=== PATIENT | female | born 1950 | race Two or more races ===

== ENCOUNTER 2024-06-13 10:04 | Emergency (ER) | payer OTHER ==
[~2024-06-13] VITALS: Ht 157.5 cm; Wt 58.1 kg
[~2024-06-13 10:04] MED LIST: ALBUTEROL17 G1 IH; ATACAND32 MG PO; EVISTA60 MG PO
[2024-06-13] MEDS ORDERED: COZAAR100 MG PO (10:31)
[2024-06-13] MEDS ORDERED: LIPITOR40 M1 PO (10:32)
[2024-06-13] MEDS ORDERED: SINGULAIR4 MG PO (10:32)
[2024-06-13] MEDS ORDERED: 0.9 % SODIUM CHLORIDE 1,000 ML IV ONE (11:15)
[2024-06-13] MEDS ORDERED: ACYCLOVIR 800 MG TABLET PO ONE (11:15)
[2024-06-13] MEDS ORDERED: KETOROLAC TROMETHAMINE 60 MG VIAL IM ONE (11:15)
[2024-06-13] MEDS ORDERED: FAMOtidine 10 MG/ML (4ML VIAL) IV ONE (11:15)
[2024-06-13] MEDS ORDERED: KETOROLAC TROMETHAMINE 30 MG VIAL ONE (11:37)
[2024-06-13] MEDS ORDERED: FAMOTIDINE/PF 20 MG/2 ML VIAL ONE (11:37)
[2024-06-13 12:31] LABS: HEMOGLOBIN 13.8 g/dL (12.0-15.00); MEAN CELL VOLUME 95.8 fL (80.00-100.00); MEAN CORPUSCULAR HEMOGLOBIN 32.9 pg (27.00-32.0); MEAN CORPUSCULAR HGB CONC 34.4 g/dl (32.0-36.0); PLATELET COUNT 197 K/uL (150-450); RED BLOOD COUNT 4.18 M/uL (4.00-6.00); RED CELL DISTRIBUTION WIDTH 13.2 % (11.5-14.5)
[2024-06-13 12:42] LABS: ALBUMIN 3.5 gm/dL (3.4-5.0); BILIRUBIN TOTAL 0.74 mg/dL (0.3-1.2); CALCIUM 9.7 mg/dL (8.5-10.1); CREATININE SERUM 0.67 mg/dL (0.55-1.02); GFR 85.8; GLOBULINA 4.4 G/DL (2.4-3.5); POTASSIUM 4.55 mEq/L (3.5-5.1); TOTAL PROTEIN 7.9 gm/dL (6.4-8.2)
[2024-06-13 12:47] LABS: URINE APPEARANCE Clear; URINE BILIRRUBIN Negative (NEGATIVE); URINE BLOOD Small; URINE COLOR Yellow; URINE GLUCOSE Negative (NEGATIVE); URINE KETONE 15 (NEGATIVE); URINE LEUKOCYTE Negative; URINE NITRATE Negative; URINE PROTEIN Negative (NEGATIVE); URINE UROBILINOGEN 0.2 E.U./dl
[2024-06-13 12:51] LABS: URINE EPITHELIAL CELLS 3.8 uL (0.0-38.8); URINE RBC 15.5 uL (0.0-20.8); URINE WBC 3.9 uL (0.0-23.2)
[2024-06-13 12:55] LABS: URINE BACTERIA 2.5 uL (0.0-1933)
[2024-06-13] MEDS ORDERED: ZOVIRAX800 MG PO (13:02)
[2024-06-13] MEDS ORDERED: PEPCID AC20 MG PO (13:02)
[2024-06-13] MEDS ORDERED: HORIZANT300 MG PO (13:02)
== END 2024-06-13 13:13 | disposition home or self-care (01) ==
LOC: ER 10:05
PROVIDERS: General Practice
DX: B02.9 Zoster without complications (principal); R10.9 Unspecified abdominal pain; I10 Essential (primary) hypertension
CPT/HCPCS: 36415; 96365; 96372; 99282; J1885; J3490; J7030

== ENCOUNTER 2025-09-09 08:12 | Emergency (ER) | payer OTHER ==
[~2025-09-09] VITALS: Ht 157.5 cm; Wt 59.0 kg
[~2025-09-09 08:12] MED LIST changes: +COZAAR100 MG PO; +HORIZANT300 MG PO; +LIPITOR40 M1 PO; +PEPCID AC20 MG PO; +SINGULAIR4 MG PO; +ZOVIRAX800 MG PO
[2025-09-09] MEDS ORDERED: METHYLPREDNISOLONE SOD SUCC 125 MG VIAL IV ONE (09:00)
[2025-09-09] MEDS ORDERED: CEFTRIAXONE SODIUM 1,000 MG VIAL IV ONE (09:00)
[2025-09-09] MEDS ORDERED: MAGNESIUM SULFATE IN WATER 0.04 GM/ML IV.SOLN IV ONE (09:00)
[2025-09-09] MEDS ORDERED: LEVALBUTEROL HCL 1.25 MG/3 ML SOLUTION IH SCH (09:00)
[2025-09-09] MEDS ORDERED: IPRATROPIUM BROMIDE 0.5 MG/2.5 ML AMPUL.NEB IH SCH (09:00)
[2025-09-09] MEDS ORDERED: METHYLPREDNISOLONE SOD SUCC 125 MG VIAL ONE (09:02)
[2025-09-09] MEDS ORDERED: CEFTRIAXONE SODIUM 1,000 MG VIAL ONE (09:02)
[2025-09-09] MEDS ORDERED: WATER FOR INJ.,BACTERIOSTATIC 30 ML VIAL IJ ONE (09:04)
[2025-09-09] MEDS ORDERED: LEVALBUTEROL HCL 1.25 MG/3 ML SOLUTION IH ONE (09:54)
[2025-09-09] MEDS ORDERED: IPRATROPIUM BROMIDE 0.5 MG/2.5 ML AMPUL.NEB IH ONE (09:55)
[2025-09-09 10:17] LABS: BASO % 0.3 % (0.1-1.2); EOS # 0.07 (0.04-0.54); EOS % 0.9 % (0.7-7.0); LYMPH # 0.58 (1.18-3.74); LYMPH % 7.4 % (19.3-53.1); MEAN PLATELET VOLUME 10.60 fl (9.4-12.4); MONO # 0.45 (0.24-0.82); MONO % 5.7 % (4.7-12.5); NEUT # 6.70 (1.56-6.13); NEUT % 85.4 % (34.0-71.1); RED CELL DISTRIBUTION WIDTH 13.5 % (11.6-14.4)
[2025-09-09 10:51] LABS: ALT/SGPT 17.0 U/L (12-78); AST/SGOT 19.0 U/L (15-37); BILIRUBIN TOTAL 1.08 mg/dL (0.3-1.2); BUN CREA RATIO 21.0 (7.0-25.0); CREATININE SERUM 0.67 mg/dL (0.55-1.02); GFR 85.57; GLOBULINA 5.0 G/DL (2.4-3.5); GLUCOSE FASTING 129.0 mg/dL (65-100); OSMOLALITY SERUM 287.0 MOSM/KG (275-295)
[2025-09-09 11:05] LABS: COVID-19 AG NEGATIVE (NEGATIVE)
[2025-09-09] MEDS ORDERED: SINGULAIR10 MG PO (11:44)
[2025-09-09] MEDS ORDERED: ADULT TUSS100 MG/51 PO (11:44)
[2025-09-09] MEDS ORDERED: BENZONATATE200 M1 PO (11:44)
[2025-09-09] MEDS ORDERED: LEVALBUTER0.63 MG/3 IH (11:44)
== END 2025-09-09 12:42 | disposition home or self-care (01) ==
LOC: ER 08:12
PROVIDERS: General Practice
DX: J45.909 Unspecified asthma, uncomplicated (principal); R53.83 Other fatigue; R06.02 Shortness of breath; I10 Essential (primary) hypertension; Z20.822 Contact with and (suspected) exposure to COVID-19
CPT/HCPCS: 36415; 71045; 82803; 94640; 96365; 99283; J0696; J3475; J3490

== ENCOUNTER 2025-09-10 08:54 | Inpatient (IN) | payer OTHER ==
[~2025-09-10] VITALS: Ht 160 cm; Wt 59.0 kg
[~2025-09-10 08:54] MED LIST changes: +ADULT TUSS100 MG/51 PO; +BENZONATATE200 M1 PO; +LEVALBUTER0.63 MG/3 IH; +SINGULAIR10 MG PO
--- NOTE | 2025-09-10 09:04 | NUR ---
PACIENTE ALERTA Y ORIENTADA X 3. REFIERE DESDE ROBBIN TENER HBP, CANSANCIO, ASMA Y SE OBSERVA CON ANSIEDAD AL MOMENTO DE REALIZAR TRIAGE.
[2025-09-10] MEDS ORDERED: CEFTRIAXONE SODIUM 2,000 MG VIAL IV ONE (10:00)
[2025-09-10] MEDS ORDERED: METHYLPREDNISOLONE SOD SUCC 125 MG VIAL IV ONE (10:00)
[2025-09-10] MEDS ORDERED: IPRATROPIUM BROMIDE 0.5 MG/2.5 ML AMPUL.NEB IH ONE (10:00)
[2025-09-10] MEDS ORDERED: LEVALBUTEROL HCL 0.63 MG/3 ML SOLUTION IH SCH (10:00)
[2025-09-10] MEDS ORDERED: IPRATROPIUM BROMIDE 0.5 MG/2.5 ML AMPUL.NEB IH SCH (10:00)
[2025-09-10] MEDS ORDERED: ENALAPRILAT DIHYDRATE 1.25 MG/ML VIAL IV ONE ×2 (10:00→10:03)
[2025-09-10] MEDS ORDERED: LEVALBUTEROL HCL 0.63 MG/3 ML SOLUTION IH ONE (10:01)
[2025-09-10] MEDS ORDERED: METHYLPREDNISOLONE SOD SUCC 125 MG VIAL ONE (10:03)
[2025-09-10] MEDS ORDERED: CEFTRIAXONE SODIUM 2,000 MG VIAL ONE (10:03)
--- NOTE | 2025-09-10 10:34 | NUR ---
SE ORIENTA A PACIENTE SOBRE TRATAMIENTO MEDICO, REFIERE ENTENDER. SE COLECTAN MUESTRAS DE LABORATORIO Y SE CANALIZA A PACIENTE BAJO MEDIDAS ASEPTICAS. SE ADMINISTRAN MEDICAMENTOS MARTI ORDEN MEDICA. PERSONAL DE TERAPIA RESPIRATORIA REALIZA ABGS Y ADMINISTRA TERAPIAS ORDENADAS.
[2025-09-10 11:17] LABS: BASO % 0.1 % (0.1-1.2); EOS # 0.00 (0.04-0.54); EOS % 0.0 % (0.7-7.0); LYMPH # 0.79 (1.18-3.74); LYMPH % 6.9 % (19.3-53.1); MEAN PLATELET VOLUME 10.70 fl (9.4-12.4); MONO # 0.93 (0.24-0.82); MONO % 8.1 % (4.7-12.5); NEUT # 9.65 (1.56-6.13); NEUT % 84.4 % (34.0-71.1); RED CELL DISTRIBUTION WIDTH 13.4 % (11.6-14.4)
[2025-09-10 11:20] LABS: ERYTHROCYTE SEDIMENTATION RATE 79 mm/hr (0-30)
[2025-09-10 11:51] LABS: ALT/SGPT 20.0 U/L (12-78); AST/SGOT 22.0 U/L (15-37); BILIRUBIN TOTAL 1.03 mg/dL (0.3-1.2); BUN CREA RATIO 20.0 (7.0-25.0); CREATININE SERUM 0.83 mg/dL (0.55-1.02); GFR 66.84; GLOBULINA 5.6 G/DL (2.4-3.5); GLUCOSE FASTING 106.0 mg/dL (65-100); OSMOLALITY SERUM 287.0 MOSM/KG (275-295)
[2025-09-10] MEDS ORDERED: MAGNESIUM SULFATE IN WATER 50 ML IV ONE (12:15)
[2025-09-10] MEDS ORDERED: hydrALAZINE HCL 20 MG VIAL IV PRN (18:45)
[2025-09-10] MEDS ORDERED: ACETAMINOPHEN 325 MG TABLET PO PRN (18:45)
[2025-09-10] MEDS ORDERED: 0.9 % SODIUM CHLORIDE 1,000 ML IV SCH (18:45)
[2025-09-10] MEDS ORDERED: AZITHROMYCIN 500 MG VIAL IV SCH (21:00)
[2025-09-11] VITALS (9 sets, daily range): BP systolic 158–178; BP diastolic 72–104; O2SAT 90–99
[2025-09-11] MEDS ORDERED: LEVALBUTEROL HCL 1.25 MG/3 ML SOLUTION IH SCH
[2025-09-11] MEDS ORDERED: IPRATROPIUM BROMIDE 0.5 MG/2.5 ML AMPUL.NEB IH SCH
[2025-09-11] MEDS ORDERED: METHYLPREDNISOLONE SOD SUCC 40 MG VIAL IV SCH (01:00)
[2025-09-11] MEDS ORDERED: SODIUM CHLORIDE 0.45 % 1,000 ML IV SCH (07:15)
[2025-09-11] MEDS ORDERED: AZITHROMYCIN 500 MG VIAL IV ONE ×2 (08:10→20:39)
[2025-09-11 08:56] LABS: COVID-19 AG NEGATIVE (NEGATIVE)
[2025-09-11] MEDS ORDERED: DILTIAZEM HCL 30 MG TABLET PO SCH (09:00)
[2025-09-11] MEDS ORDERED: GUAIFENESIN 200 MG/10 ML BLIST.PACK PO SCH (09:00)
[2025-09-11] MEDS ORDERED: ATORVASTATIN CALCIUM 40 MG TABLET PO SCH (09:00)
[2025-09-11] MEDS ORDERED: LOSARTAN POTASSIUM 100 MG TABLET PO SCH (09:00)
[2025-09-11 09:38] LABS: MYCOPLASMA PNEUMONIAE IGM NON REACTIVE (NO REACTIVE)
[2025-09-11] MEDS ORDERED: PANTOPRAZOLE SODIUM 40 MG/VIAL VIAL IV SCH (12:00)
[2025-09-11] MEDS ORDERED: MONTELUKAST SODIUM 10 MG TABLET PO SCH (17:00)
[2025-09-12] VITALS (9 sets, daily range): BP systolic 164–174; BP diastolic 80–88; O2SAT 94–99
[2025-09-12] MEDS ORDERED: AZITHROMYCIN 500 MG VIAL IV ONE (08:07)
[2025-09-13] VITALS (8 sets, daily range): BP systolic 135–171; BP diastolic 73–94; O2SAT 95–99
[2025-09-13] MEDS ORDERED: hydrALAZINE HCL 20 MG VIAL IV STA (08:06)
[2025-09-13] MEDS ORDERED: METHYLPREDNISOLONE SOD SUCC 40 MG VIAL IV SCH (09:00)
[2025-09-14 00:12] VITALS: O2SAT 95
[2025-09-14 03:18] VITALS: BP 179/78; O2SAT 96
[2025-09-14 04:45] VITALS: O2SAT 94
[2025-09-14] MEDS ORDERED: ENALAPRILAT DIHYDRATE 2.5 MG/2 ML VIAL IV STA (07:31)
[2025-09-14] MEDS ORDERED: AMLODIPINE BESYLATE 5 MG TABLET PO STA (07:31)
[2025-09-14 08:42] VITALS: O2SAT 97
[2025-09-14] MEDS ORDERED: PANTOPRAZOLE SODIUM 40 MG TABLET.DR PO SCH (09:00)
[2025-09-14 09:14] VITALS: BP 174/80; O2SAT 97
== END 2025-09-14 11:50 | disposition home or self-care (01) | DRG 203 ==
LOC: ER 08:54 → MEDI 18:41
PROVIDERS: General Practice; ADMIT Internal Medicine; ATTEND Internal Medicine
PROC: 3E0F7GC Introduction of Other Therapeutic Substance into Respiratory Tract, Via Natural or Artificial Opening (ICD-10-PCS; principal; 2025-09-11)
PROC: 4A12X4Z Monitoring of Cardiac Electrical Activity, External Approach (ICD-10-PCS; 2025-09-11)
DX: J45.901 Unspecified asthma with (acute) exacerbation (principal); E78.49 Other hyperlipidemia; I11.9 Hypertensive heart disease without heart failure